=== PATIENT | female | born 1950 | race Caucasian/White ===

== ENCOUNTER 2017-03-19 17:50 | Observation (INO) | payer MEDICARE, MEDICAID ==
[~2017-03-19] VITALS: Ht 157.5 cm; Wt 70.0 kg
[2017-03-19] MEDS ORDERED: LOSA100T6 PO (18:45)
[2017-03-19] MEDS ORDERED: ASPI-496 PO (18:45)
[2017-03-19] MEDS ORDERED: METO25TA35 PO (18:45)
[2017-03-19 19:14] LABS: HEMATOCRIT 40.1 % (34.6-47.8); HEMOGLOBIN 13.4 g/dL (11.7-16.4); WHITE BLOOD COUNT 13.8 x10^3/uL (3.4-10)
[2017-03-19 19:30] LABS: BLOOD UREA NITROGEN 15 mg/dL (7-18)
[2017-03-19 19:34] LABS: ASPARTATE AMINO TRANSFERASE 44 U/L (15-37)
[2017-03-19 19:36] LABS: ACETAMINOPHEN < 2 mcg/mL (10-30)
[2017-03-19 20:20] LABS: DAU SCREEN DISCLAIMER
[2017-03-20] MEDS ORDERED: HALOPERIDOL 5 MG TABLET PO PRN (05:30)
[2017-03-20] MEDS ORDERED: BENZTROPINE 1 MG TABLET PO PRN (05:30)
[2017-03-20] MEDS ORDERED: HALOPERIDOL 5 MG/ML IM PRN (05:30)
[2017-03-20] MEDS ORDERED: LORazepam 2 MG/ML, 1ML IM PRN (05:30)
[2017-03-20] MEDS ORDERED: LORazepam 1MG TABLET ONE ×2 (09:09→19:35)
[2017-03-20] MEDS: LORazepam 1MG TABLET PO PRN ×2 (09:11→19:45)
[2017-03-21 05:53] VITALS: BP 145/80
[2017-03-21] MEDS ORDERED: HYDROcodone/APAP 5/325 TABLET ONE (06:43)
[2017-03-21] MEDS ORDERED: HYDROcodone/APAP 5/325 TABLET PO ONE (07:00)
== END 2017-03-21 08:08 ==
LOC: ED 19:52 → EDIP 03-20 04:50
PROVIDERS: ADMIT Hospitalist; ATTEND Hospitalist
DX: F22 Delusional disorders (principal); F23 Brief psychotic disorder; E03.9 Hypothyroidism, unspecified; F41.1 Generalized anxiety disorder; I10 Essential (primary) hypertension; J44.9 Chronic obstructive pulmonary disease, unspecified
CPT/HCPCS: 36415; 80053; 80307; 80329; 81001; 84443; 85025; 87086; 99285; G0378; G0479; G0480

== ENCOUNTER 2017-11-12 12:36 | Inpatient (IN) | payer MEDICARE, MEDICAID ==
[~2017-11-12] VITALS: Ht 157.5 cm; Wt 59.0 kg
[~2017-11-12 12:36] MED LIST: ASPI-496 PO; LOSA100T6 PO; METO25TA35 PO
[2017-11-12 13:31] LABS: BASOPHILS % (AUTO) 0 % (0-1); EOSINOPHILS # (AUTO) 0.08 x10^3/uL (0-0.4); EOSINOPHILS % (AUTO) 1 % (1-7); LYMPHOCYTES # (AUTO) 0.93 x10^3/uL (1-3.4); LYMPHOCYTES % (AUTO) 13 % (22-44); MD NO; MEAN CORPUSCULAR HEMOGLOBIN 24.6 pg (27.0-34.8); MEAN CORPUSCULAR VOLUME 81.9 fL (80-100); MEAN PLATELET VOLUME 5.4 fL (7.4-10.4); MONOCYTES % (AUTO) 11 % (2-9); NEUTROPHILS # (AUTO) 5.38 x10^3/uL (1.8-6.8); NEUTROPHILS % (AUTO) 75 % (42-75); PLATELET COUNT 721 x10^3/uL (130-400); RED BLOOD COUNT 3.63 x10^6/uL (3.82-5.3); RED CELL DISTRIBUTION WIDTH 17.9 % (9.6-15.2)
[2017-11-12 13:44] LABS: ALANINE AMINOTRANSFERASE 19 U/L (12-78); ALBUMIN 3.2 g/dL (3.4-5.0); ANION GAP 8 mmol/L (5-15); CALCIUM 8.4 mg/dL (8.5-10.1); CHLORIDE 98 mmol/L (98-107); CREATININE 0.51 mg/dL (0.55-1.02)
[2017-11-12 13:45] LABS: ACETAMINOPHEN < 2 mcg/mL (10-30); SALICYLATE LEVEL < 1.7 mg/dL (2.8-20.0)
[2017-11-12 13:46] LABS: ALKALINE PHOSPHATASE 99 U/L (45-117); BILIRUBIN,TOTAL 0.2 mg/dL (0.2-1.0); TOTAL PROTEIN 7.2 g/dL (6.4-8.2)
[2017-11-12] MEDS ORDERED: POTASSIUM CHLORIDE 20 MEQ, MAGNESIUM SULFATE 2 GM, THIAMINE 100 MG, MVI ADULT 10 ML, FO... IV SCH (17:02)
[2017-11-12] MEDS ORDERED: POLYETHYLENE GLYCOL 17 GM PACKET PO PRN (17:30)
[2017-11-12] MEDS ORDERED: GLUCAGON 1 MG IM PRN (17:30)
[2017-11-12] MEDS ORDERED: DEXTROSE 4 GM TAB.CHEW PO PRN (17:30)
[2017-11-12] MEDS ORDERED: DEXTROSE 50%, 50ML SYRINGE IVPush PRN (17:30)
[2017-11-12] MEDS ORDERED: LABETALOL 5MG/ML, 20ML IVPush PRN (17:30)
[2017-11-12] MEDS ORDERED: ONDANSETRON 2MG/ML, 2ML IVPush PRN (17:30)
[2017-11-12] MEDS ORDERED: LACTATED RINGERS 1,000 ML IV SCH (17:30)
[2017-11-12] MEDS ORDERED: ENOXAPARIN 40 MG/0.4 ML ONE (17:50)
[2017-11-12] MEDS: ENOXAPARIN 40 MG/0.4 ML SQ SCH (17:55)
[2017-11-12 18:33] LABS: FOLATE LEVEL 17.2 ng/mL (3.1-17.5); FREE T4 (FREE THYROXINE) 1.05 ng/dL (0.76-1.46); THYROID STIMULATING HORMONE 0.949 mIU/L (0.358-3.740)
[2017-11-12] MEDS ORDERED: ALBUTEROL SULFATE 2.5 MG/3 ML ONE (18:45)
[2017-11-12] MEDS: ALBUTEROL SULFATE 2.5 MG/3 ML NPPB PRN (18:49)
[2017-11-12] MEDS ORDERED: NICOTINE 14MG/24 HR PATCH.TD24 TD ONE (19:00)
[2017-11-12] MEDS ORDERED: LORazepam 1MG TABLET PO PRN ×4 (19:00)
[2017-11-12] MEDS ORDERED: LORazepam 2 MG/ML, 1ML IV PRN ×5 (19:00)
[2017-11-12] MEDS ORDERED: POTASSIUM CHLORIDE 20 MEQ TAB.ER.PRT PO ONE (19:00)
[2017-11-12] MEDS ORDERED: OMNIPAQUE 350 MG/ML, 100ML BOTTLE ONE (19:00)
[2017-11-12 19:31] VITALS: BP 138/69
[2017-11-12] MEDS: ALBUTEROL SULFATE 2.5 MG/3 ML NPPB SCH (21:00)
[2017-11-12] MEDS: THIAMINE 100MG TABLET PO SCH (21:17)
[2017-11-12] MEDS: SODIUM CHLORIDE FLUSH 10ML SYR IVF SCH (21:18)
[2017-11-12] MEDS: METOPROLOL TARTRATE 25 MG TABLET PO SCH (21:18)
[2017-11-12] MEDS: FOLIC ACID 1 MG TABLET PO SCH (21:18)
[2017-11-12 22:05] VITALS: BP 140/61
[2017-11-12 22:06] VITALS: BP 157/69
[2017-11-12 22:09] VITALS: BP 111/66
[2017-11-12 23:09] LABS: MICROSCOPIC NOT IND
[2017-11-12 23:12] LABS: CULTURE INDICATED? NO
[2017-11-12 23:29] LABS: AMPHETAMINE SCREEN, URINE Negative (Negative); BARBITURATE SCREEN, URINE Negative (Negative); BENZODIAZEPINE SCREEN, URINE Negative (Negative); CANNABINOID SCREEN, URINE Negative (Negative); COCAINE SCREEN, URINE Negative (Negative); METHADONE SCREEN, URINE Negative (Negative); OPIATE SCREEN, URINE Negative (Negative)
[2017-11-12 23:45] LABS: TROPONIN I < 0.015 ng/mL (0.000-0.045)
[2017-11-12 23:49] LABS: OCCULT BLOOD NEGATIVE (NEGATIVE)
[2017-11-13 03:59] VITALS: BP 148/73
[2017-11-13 05:25] LABS: BASOPHILS # (AUTO) 0.01 x10^3/uL (0-0.1); BASOPHILS % (AUTO) 0 % (0-1); EOSINOPHILS # (AUTO) 0.04 x10^3/uL (0-0.4); EOSINOPHILS % (AUTO) 1 % (1-7); LYMPHOCYTES # (AUTO) 0.74 x10^3/uL (1-3.4); LYMPHOCYTES % (AUTO) 11 % (22-44); MD NO; MEAN CORPUSCULAR HEMOGLOBIN 26.1 pg (27.0-34.8); MEAN CORPUSCULAR HGB CONC 31.5 g/dL (32.4-35.8); MEAN CORPUSCULAR VOLUME 82.7 fL (80-100); MEAN PLATELET VOLUME 5.5 fL (7.4-10.4); MONOCYTES # (AUTO) 1.27 x10^3/uL (0.2-0.8); MONOCYTES % (AUTO) 20 % (2-9); NEUTROPHILS # (AUTO) 4.45 x10^3/uL (1.8-6.8); NEUTROPHILS % (AUTO) 68 % (42-75); PLATELET COUNT 606 x10^3/uL (130-400); RED BLOOD COUNT 3.24 x10^6/uL (3.82-5.3); RED CELL DISTRIBUTION WIDTH 17.3 % (9.6-15.2)
[2017-11-13 05:32] LABS: CHLORIDE 100 mmol/L (98-107)
[2017-11-13 05:35] LABS: TROPONIN I < 0.015 ng/mL (0.000-0.045)
[2017-11-13 05:44] LABS: ALANINE AMINOTRANSFERASE 16 U/L (12-78); ALBUMIN 2.9 g/dL (3.4-5.0); ALKALINE PHOSPHATASE 96 U/L (45-117); ANION GAP 8 mmol/L (5-15); BILIRUBIN,TOTAL 0.3 mg/dL (0.2-1.0); CALCIUM 8.3 mg/dL (8.5-10.1); CREATININE 0.46 mg/dL (0.55-1.02); TOTAL PROTEIN 6.3 g/dL (6.4-8.2)
[2017-11-13 07:03] VITALS: BP 164/75
[2017-11-13] MEDS ORDERED: IRON SUCROSE COMPLEX 100MG/5ML IV SCH (09:00)
[2017-11-13] MEDS ORDERED: ASPIRIN 81 MG TABLET EC PO SCH (09:00)
[2017-11-13] MEDS: ALBUTEROL SULFATE 2.5 MG/3 ML NPPB SCH ×2 (09:00→20:25)
[2017-11-13] MEDS: FOLIC ACID 1 MG TABLET PO SCH (09:29)
[2017-11-13] MEDS: SENNA/DOCUSATE TABLET PO SCH ×2 (09:29→09:48)
[2017-11-13] MEDS: METOPROLOL TARTRATE 25 MG TABLET PO SCH (09:33)
[2017-11-13] MEDS: THIAMINE 100MG TABLET PO SCH (09:34)
[2017-11-13] MEDS: SODIUM CHLORIDE FLUSH 10ML SYR IVF SCH ×2 (09:41→21:34)
[2017-11-13 11:00] VITALS: BP_SYST 153; BP_SYST 162; BP_DIAS 81; BP_DIAS 83
[2017-11-13 11:59] LABS: TROPONIN I < 0.015 ng/mL (0.000-0.045)
[2017-11-13 15:08] VITALS: BP 161/86
[2017-11-13] MEDS ORDERED: SODI1TAB PO (16:07)
[2017-11-13] MEDS ORDERED: LORA1TAB PO (16:07)
[2017-11-13] MEDS ORDERED: GABA100C PO (16:07)
[2017-11-13] MEDS ORDERED: QUET25TA PO (16:07)
[2017-11-13] MEDS ORDERED: BUDE10.2 INH (16:07)
[2017-11-13] MEDS ORDERED: ASPI-496 PO (16:07)
[2017-11-13] MEDS ORDERED: LOSA25TA5 PO (16:07)
[2017-11-13] MEDS ORDERED: LEVO50TA PO (16:07)
[2017-11-13] MEDS ORDERED: BUSP5TAB2 PO (16:07)
[2017-11-13] MEDS ORDERED: TRAZ50TA18 PO (16:07)
[2017-11-13] MEDS ORDERED: LORA0.5T PO (16:07)
[2017-11-13] MEDS ORDERED: METO-93 PO (16:07)
[2017-11-13] MEDS ORDERED: SERT50TA5 PO (16:07)
[2017-11-13] MEDS ORDERED: ALBU18HF INH (16:07)
[2017-11-13] MEDS: ENOXAPARIN 40 MG/0.4 ML SQ SCH (17:59)
[2017-11-13] MEDS: GUAIFENESIN 200 MG TABLET PO SCH ×2 (17:59→21:33)
[2017-11-13] MEDS: ACETAMINOPHEN 325 MG TABLET PO PRN (18:07)
[2017-11-13 18:38] VITALS: BP 144/72
[2017-11-13] MEDS: QUETIAPINE 25MG TABLET PO SCH (21:00)
[2017-11-13] MEDS: TRAZODONE 50MG TABLET PO SCH (21:00)
[2017-11-13] MEDS: GABAPENTIN 100 MG CAPSULE PO SCH (21:00)
[2017-11-13] MEDS: NICOTINE 14MG/24 HR PATCH.TD24 TD SCH (21:33)
[2017-11-13] MEDS: BUSPIRONE 5 MG TABLET PO SCH (21:33)
[2017-11-13] MEDS ORDERED: POTASSIUM CHLORIDE 20 MEQ, MAGNESIUM SULFATE 2 GM, THIAMINE 100 MG, MVI ADULT 10 ML, FO... IV SCH (22:00)
[2017-11-14 00:39] VITALS: BP 161/96
[2017-11-14] MEDS: ACETAMINOPHEN 325 MG TABLET PO PRN ×3 (00:53→18:33)
[2017-11-14 05:15] LABS: ALBUMIN 2.8 g/dL (3.4-5.0); ANION GAP 8 mmol/L (5-15); CALCIUM 8.6 mg/dL (8.5-10.1); CHLORIDE 96 mmol/L (98-107); CREATININE 0.48 mg/dL (0.55-1.02)
[2017-11-14 05:26] LABS: BASOPHILS # (AUTO) 0.04 x10^3/uL (0-0.1); BASOPHILS % (AUTO) 1 % (0-1); EOSINOPHILS # (AUTO) 0.06 x10^3/uL (0-0.4); EOSINOPHILS % (AUTO) 1 % (1-7); LYMPHOCYTES # (AUTO) 0.89 x10^3/uL (1-3.4); LYMPHOCYTES % (AUTO) 12 % (22-44); MEAN CORPUSCULAR HEMOGLOBIN 26.8 pg (27.0-34.8); MEAN CORPUSCULAR HGB CONC 32.3 g/dL (32.4-35.8); MEAN CORPUSCULAR VOLUME 82.9 fL (80-100); MONOCYTES # (AUTO) 1.04 x10^3/uL (0.2-0.8); MONOCYTES % (AUTO) 14 % (2-9); NEUTROPHILS # (AUTO) 5.26 x10^3/uL (1.8-6.8); NEUTROPHILS % (AUTO) 72 % (42-75); PLATELET COUNT 487 x10^3/uL (130-400); RED CELL DISTRIBUTION WIDTH 18.3 % (9.6-15.2)
[2017-11-14] MEDS: GUAIFENESIN 200 MG TABLET PO SCH ×4 (05:28→20:52)
[2017-11-14] MEDS: LEVOTHYROXINE 50 MCG TABLET PO SCH (05:28)
[2017-11-14 05:36] LABS: MD NO
[2017-11-14] MEDS: ALBUTEROL SULFATE 2.5 MG/3 ML NPPB SCH ×2 (07:31→19:40)
[2017-11-14 08:09] VITALS: BP 153/74
[2017-11-14] MEDS: GABAPENTIN 100 MG CAPSULE PO SCH ×3 (09:00→20:52)
[2017-11-14] MEDS ORDERED: ASPIRIN 81 MG TABLET EC PO SCH (09:00)
[2017-11-14] MEDS: IRON SUCROSE COMPLEX 100MG/5ML IV SCH (09:22)
[2017-11-14] MEDS: SENNA/DOCUSATE TABLET PO SCH (09:23)
[2017-11-14] MEDS: SODIUM CHLORIDE FLUSH 10ML SYR IVF SCH ×2 (09:23→20:51)
[2017-11-14] MEDS: SERTRALINE 50MG TABLET PO SCH (09:24)
[2017-11-14] MEDS: ASPIRIN 81 MG TABLET CHEW PO SCH (09:24)
[2017-11-14] MEDS: BUSPIRONE 5 MG TABLET PO SCH ×3 (09:24→20:52)
[2017-11-14] MEDS: LOSARTAN 25MG TABLET PO SCH (09:24)
[2017-11-14] MEDS: THIAMINE 100MG TABLET PO SCH (09:24)
[2017-11-14] MEDS: METOPROLOL SUCCINATE 50 MG TAB.ER.24H PO SCH (09:24)
[2017-11-14] MEDS: FOLIC ACID 1 MG TABLET PO SCH (09:24)
[2017-11-14] MEDS: LORazepam 0.5MG TABLET PO PRN ×2 (11:56→18:33)
[2017-11-14 12:42] VITALS: BP 146/65
[2017-11-14] MEDS: ENOXAPARIN 40 MG/0.4 ML SQ SCH (18:23)
[2017-11-14 20:00] VITALS: BP 162/83
[2017-11-14] MEDS: QUETIAPINE 25MG TABLET PO SCH (20:52)
[2017-11-14] MEDS: TRAZODONE 50MG TABLET PO SCH (20:52)
[2017-11-14] MEDS: NICOTINE 14MG/24 HR PATCH.TD24 TD SCH (20:57)
[2017-11-15 02:00] VITALS: BP 136/68
[2017-11-15] MEDS: ACETAMINOPHEN 325 MG TABLET PO PRN ×3 (02:59→20:32)
[2017-11-15] MEDS: ALBUTEROL SULFATE 2.5 MG/3 ML NPPB PRN (03:10)
[2017-11-15] MEDS: LEVOTHYROXINE 50 MCG TABLET PO SCH (05:18)
[2017-11-15] MEDS: GUAIFENESIN 200 MG TABLET PO SCH ×4 (05:18→20:31)
[2017-11-15 05:35] LABS: ALBUMIN 2.7 g/dL (3.4-5.0); ANION GAP 7 mmol/L (5-15); CALCIUM 8.8 mg/dL (8.5-10.1); CHLORIDE 96 mmol/L (98-107)
[2017-11-15 05:40] LABS: ALANINE AMINOTRANSFERASE 12 U/L (12-78); ALKALINE PHOSPHATASE 77 U/L (45-117); BILIRUBIN,TOTAL 0.2 mg/dL (0.2-1.0); CREATININE 0.43 mg/dL (0.55-1.02); TOTAL PROTEIN 6.2 g/dL (6.4-8.2)
[2017-11-15 05:48] LABS: BASOPHILS # (AUTO) 0.01 x10^3/uL (0-0.1); BASOPHILS % (AUTO) 0 % (0-1); EOSINOPHILS # (AUTO) 0.05 x10^3/uL (0-0.4); EOSINOPHILS % (AUTO) 1 % (1-7); LYMPHOCYTES # (AUTO) 0.82 x10^3/uL (1-3.4); LYMPHOCYTES % (AUTO) 14 % (22-44); MD NO; MEAN CORPUSCULAR HEMOGLOBIN 25.9 pg (27.0-34.8); MEAN CORPUSCULAR HGB CONC 31.6 g/dL (32.4-35.8); MEAN CORPUSCULAR VOLUME 81.7 fL (80-100); MONOCYTES # (AUTO) 0.89 x10^3/uL (0.2-0.8); MONOCYTES % (AUTO) 15 % (2-9); NEUTROPHILS # (AUTO) 4.18 x10^3/uL (1.8-6.8); NEUTROPHILS % (AUTO) 70 % (42-75); PLATELET COUNT 522 x10^3/uL (130-400); RED BLOOD COUNT 3.04 x10^6/uL (3.82-5.3); RED CELL DISTRIBUTION WIDTH 17.4 % (9.6-15.2)
[2017-11-15] MEDS: ALBUTEROL SULFATE 2.5 MG/3 ML NPPB SCH (07:20)
[2017-11-15 08:04] VITALS: BP 146/65
[2017-11-15] MEDS: GABAPENTIN 100 MG CAPSULE PO SCH ×4 (09:00→20:38)
[2017-11-15] MEDS: SENNA/DOCUSATE TABLET PO SCH (09:00)
[2017-11-15] MEDS: SODIUM CHLORIDE FLUSH 10ML SYR IVF SCH ×2 (09:00→20:31)
[2017-11-15] MEDS: LOSARTAN 25MG TABLET PO SCH (10:14)
[2017-11-15] MEDS: FOLIC ACID 1 MG TABLET PO SCH (10:14)
[2017-11-15] MEDS: THIAMINE 100MG TABLET PO SCH (10:14)
[2017-11-15] MEDS: IRON SUCROSE COMPLEX 100MG/5ML IV SCH (10:14)
[2017-11-15] MEDS: SERTRALINE 50MG TABLET PO SCH (10:14)
[2017-11-15] MEDS: BUSPIRONE 5 MG TABLET PO SCH ×3 (10:14→20:33)
[2017-11-15] MEDS: ASPIRIN 81 MG TABLET CHEW PO SCH (10:14)
[2017-11-15] MEDS: METOPROLOL SUCCINATE 50 MG TAB.ER.24H PO SCH (10:14)
[2017-11-15] MEDS: LORazepam 0.5MG TABLET PO PRN ×2 (10:32→20:31)
[2017-11-15] MEDS: NICOTINE 14MG/24 HR PATCH.TD24 TD SCH (12:47)
[2017-11-15 15:03] VITALS: BP 154/78
[2017-11-15] MEDS: ENOXAPARIN 40 MG/0.4 ML SQ SCH (17:50)
[2017-11-15 20:00] VITALS: BP 133/72
[2017-11-15] MEDS: TRAZODONE 50MG TABLET PO SCH (20:33)
[2017-11-15] MEDS: QUETIAPINE 25MG TABLET PO SCH (20:34)
[2017-11-16 02:00] VITALS: BP 149/74
[2017-11-16] MEDS: LORazepam 0.5MG TABLET PO PRN ×3 (02:33→16:30)
[2017-11-16] MEDS: ACETAMINOPHEN 325 MG TABLET PO PRN ×3 (02:53→20:37)
[2017-11-16] MEDS: GUAIFENESIN 200 MG TABLET PO SCH ×4 (05:22→20:37)
[2017-11-16] MEDS: LEVOTHYROXINE 50 MCG TABLET PO SCH (05:22)
[2017-11-16 05:37] LABS: MEAN CORPUSCULAR HEMOGLOBIN 26.3 pg (27.0-34.8); MEAN CORPUSCULAR HGB CONC 31.9 g/dL (32.4-35.8); MEAN CORPUSCULAR VOLUME 82.5 fL (80-100); MEAN PLATELET VOLUME 5.8 fL (7.4-10.4); PLATELET COUNT 613 x10^3/uL (130-400); RED BLOOD COUNT 3.16 x10^6/uL (3.82-5.3); RED CELL DISTRIBUTION WIDTH 18.1 % (9.6-15.2)
[2017-11-16 05:41] LABS: ALBUMIN 2.7 g/dL (3.4-5.0); ANION GAP 8 mmol/L (5-15); CALCIUM 8.7 mg/dL (8.5-10.1); CHLORIDE 97 mmol/L (98-107)
[2017-11-16 05:44] LABS: CREATININE 0.51 mg/dL (0.55-1.02)
[2017-11-16 06:11] LABS: MD YES
[2017-11-16 06:13] LABS: BASOS#(MANUAL) 0.07 x10^3/uL (0-0.1); BASOS% (MANUAL) 1 % (0-1); LYMPHS% (MANUAL) 13 % (22-44); MONOS#(MANUAL) 1.38 x10^3/uL (0.3-2.7); MONOS% (MANUAL) 20 % (2-9); SEG#(MANUAL) 4.55 x10^3/uL (1.8-6.8); SEGS% (MANUAL) 66 % (42-75)
[2017-11-16 06:14] LABS: <PLATELET ESTIMATE> INCREASED; <PLT MORPHOLOGY> NORMAL PLT MORPH; <RBC MORPHOLOGY> NORMAL
[2017-11-16 08:40] VITALS: BP 131/67
[2017-11-16] MEDS: IRON SUCROSE COMPLEX 100MG/5ML IV SCH (08:52)
[2017-11-16] MEDS: BUSPIRONE 5 MG TABLET PO SCH ×3 (08:53→20:36)
[2017-11-16] MEDS: METOPROLOL SUCCINATE 50 MG TAB.ER.24H PO SCH (08:53)
[2017-11-16] MEDS: ASPIRIN 81 MG TABLET CHEW PO SCH (08:53)
[2017-11-16] MEDS: SERTRALINE 50MG TABLET PO SCH (08:53)
[2017-11-16] MEDS: FOLIC ACID 1 MG TABLET PO SCH (08:53)
[2017-11-16] MEDS: SENNA/DOCUSATE TABLET PO SCH ×2 (08:53→09:00)
[2017-11-16] MEDS: THIAMINE 100MG TABLET PO SCH (08:53)
[2017-11-16] MEDS: GABAPENTIN 100 MG CAPSULE PO SCH ×4 (08:54→20:38)
[2017-11-16] MEDS: SODIUM CHLORIDE FLUSH 10ML SYR IVF SCH ×2 (08:54→20:36)
[2017-11-16] MEDS: LOSARTAN 25MG TABLET PO SCH (08:54)
[2017-11-16] MEDS: NICOTINE 14MG/24 HR PATCH.TD24 TD SCH (10:48)
[2017-11-16 12:33] VITALS: BP 155/77
[2017-11-16] MEDS: ENOXAPARIN 40 MG/0.4 ML SQ SCH (16:19)
[2017-11-16 18:33] VITALS: BP 129/77
[2017-11-16] MEDS: TRAZODONE 50MG TABLET PO SCH (20:36)
[2017-11-16] MEDS: QUETIAPINE 25MG TABLET PO SCH (20:40)
[2017-11-17 01:24] VITALS: BP 98/60
[2017-11-17] MEDS: LORazepam 0.5MG TABLET PO PRN ×4 (05:09→22:14)
[2017-11-17] MEDS: LEVOTHYROXINE 50 MCG TABLET PO SCH (05:10)
[2017-11-17] MEDS: GUAIFENESIN 200 MG TABLET PO SCH ×4 (05:10→19:55)
[2017-11-17] MEDS: ACETAMINOPHEN 325 MG TABLET PO PRN ×3 (05:10→16:59)
[2017-11-17 05:46] LABS: MEAN CORPUSCULAR HEMOGLOBIN 26.4 pg (27.0-34.8); MEAN CORPUSCULAR HGB CONC 31.9 g/dL (32.4-35.8); MEAN CORPUSCULAR VOLUME 82.8 fL (80-100); MEAN PLATELET VOLUME 5.8 fL (7.4-10.4); PLATELET COUNT 664 x10^3/uL (130-400); RED CELL DISTRIBUTION WIDTH 17.7 % (9.6-15.2)
[2017-11-17 05:55] LABS: ALBUMIN 2.8 g/dL (3.4-5.0); ANION GAP 7 mmol/L (5-15); CALCIUM 8.9 mg/dL (8.5-10.1); CHLORIDE 95 mmol/L (98-107)
[2017-11-17 06:00] LABS: ALANINE AMINOTRANSFERASE 13 U/L (12-78); ALKALINE PHOSPHATASE 93 U/L (45-117); BILIRUBIN,TOTAL 0.6 mg/dL (0.2-1.0); CREATININE 0.53 mg/dL (0.55-1.02); TOTAL PROTEIN 6.5 g/dL (6.4-8.2)
[2017-11-17 06:04] LABS: BASOPHILS % (AUTO) 0 % (0-1); EOSINOPHILS # (AUTO) 0.09 x10^3/uL (0-0.4); EOSINOPHILS % (AUTO) 1 % (1-7); LYMPHOCYTES # (AUTO) 0.82 x10^3/uL (1-3.4); LYMPHOCYTES % (AUTO) 10 % (22-44); MD SCAN; MONOCYTES # (AUTO) 1.54 x10^3/uL (0.2-0.8); MONOCYTES % (AUTO) 18 % (2-9); NEUTROPHILS # (AUTO) 5.94 x10^3/uL (1.8-6.8); NEUTROPHILS % (AUTO) 71 % (42-75)
[2017-11-17 07:05] VITALS: BP 146/73
[2017-11-17] MEDS: GABAPENTIN 100 MG CAPSULE PO SCH ×4 (09:00→19:58)
[2017-11-17] MEDS: SENNA/DOCUSATE TABLET PO SCH (09:00)
[2017-11-17] MEDS: LOSARTAN 25MG TABLET PO SCH (09:25)
[2017-11-17] MEDS: IRON SUCROSE COMPLEX 100MG/5ML IV SCH (09:25)
[2017-11-17] MEDS: METOPROLOL SUCCINATE 50 MG TAB.ER.24H PO SCH (09:25)
[2017-11-17] MEDS: FOLIC ACID 1 MG TABLET PO SCH (09:25)
[2017-11-17] MEDS: THIAMINE 100MG TABLET PO SCH (09:25)
[2017-11-17] MEDS: ASPIRIN 81 MG TABLET CHEW PO SCH (09:26)
[2017-11-17] MEDS: SODIUM CHLORIDE FLUSH 10ML SYR IVF SCH ×2 (09:26→19:59)
[2017-11-17] MEDS: NICOTINE 14MG/24 HR PATCH.TD24 TD SCH (12:49)
[2017-11-17 13:10] VITALS: BP 155/77
[2017-11-17] MEDS: ARIPIPRAZOLE 10 MG TABLET PO SCH (14:18)
[2017-11-17] MEDS: ENOXAPARIN 40 MG/0.4 ML SQ SCH (17:00)
[2017-11-17 18:57] VITALS: BP 133/78
[2017-11-18 01:23] VITALS: BP 158/80
[2017-11-18] MEDS: ACETAMINOPHEN 325 MG TABLET PO PRN ×3 (02:27→18:59)
[2017-11-18] MEDS: GUAIFENESIN 200 MG TABLET PO SCH ×4 (06:14→21:03)
[2017-11-18] MEDS: LEVOTHYROXINE 50 MCG TABLET PO SCH (06:14)
[2017-11-18 06:28] LABS: BASOPHILS # (AUTO) 0.04 x10^3/uL (0-0.1); BASOPHILS % (AUTO) 1 % (0-1); EOSINOPHILS # (AUTO) 0.17 x10^3/uL (0-0.4); EOSINOPHILS % (AUTO) 2 % (1-7); LYMPHOCYTES # (AUTO) 0.93 x10^3/uL (1-3.4); LYMPHOCYTES % (AUTO) 12 % (22-44); MD NO; MEAN CORPUSCULAR HEMOGLOBIN 26.3 pg (27.0-34.8); MEAN CORPUSCULAR VOLUME 82.2 fL (80-100); MEAN PLATELET VOLUME 5.5 fL (7.4-10.4); MONOCYTES # (AUTO) 1.39 x10^3/uL (0.2-0.8); MONOCYTES % (AUTO) 18 % (2-9); NEUTROPHILS # (AUTO) 5.36 x10^3/uL (1.8-6.8); NEUTROPHILS % (AUTO) 68 % (42-75); PLATELET COUNT 604 x10^3/uL (130-400); RED BLOOD COUNT 3.45 x10^6/uL (3.82-5.3); RED CELL DISTRIBUTION WIDTH 18.2 % (9.6-15.2)
[2017-11-18 06:39] LABS: ALBUMIN 2.9 g/dL (3.4-5.0); ANION GAP 8 mmol/L (5-15); CALCIUM 8.7 mg/dL (8.5-10.1); CHLORIDE 90 mmol/L (98-107); CREATININE 0.44 mg/dL (0.55-1.02)
[2017-11-18 07:49] VITALS: BP 139/76
[2017-11-18] MEDS: SENNA/DOCUSATE TABLET PO SCH ×2 (08:23→08:36)
[2017-11-18] MEDS: SODIUM CHLORIDE FLUSH 10ML SYR IVF SCH ×2 (08:23→21:04)
[2017-11-18] MEDS: METOPROLOL SUCCINATE 50 MG TAB.ER.24H PO SCH (08:24)
[2017-11-18] MEDS: LOSARTAN 25MG TABLET PO SCH (08:24)
[2017-11-18] MEDS: FOLIC ACID 1 MG TABLET PO SCH (08:24)
[2017-11-18] MEDS: ASPIRIN 81 MG TABLET CHEW PO SCH (08:24)
[2017-11-18] MEDS: THIAMINE 100MG TABLET PO SCH (08:24)
[2017-11-18] MEDS: GABAPENTIN 100 MG CAPSULE PO SCH ×2 (08:24→08:36)
[2017-11-18] MEDS: ARIPIPRAZOLE 10 MG TABLET PO SCH (08:28)
[2017-11-18] MEDS: LORazepam 0.5MG TABLET PO PRN (09:32)
[2017-11-18] MEDS: NICOTINE 14MG/24 HR PATCH.TD24 TD SCH (11:04)
[2017-11-18 13:56] VITALS: BP 132/73
[2017-11-18] MEDS: ENOXAPARIN 40 MG/0.4 ML SQ SCH (16:45)
[2017-11-18] MEDS ORDERED: SODIUM CHLORIDE 0.9%, 500ML IVBOLUS ONE (18:30)
[2017-11-18] MEDS: OLANZAPINE 10 MG TABLET PO SCH (21:04)
[2017-11-18 21:11] VITALS: BP 143/83
[2017-11-19 01:00] VITALS: BP 125/72
[2017-11-19] MEDS: ACETAMINOPHEN 325 MG TABLET PO PRN ×3 (02:07→22:01)
[2017-11-19] MEDS: GUAIFENESIN 200 MG TABLET PO SCH ×4 (06:20→21:51)
[2017-11-19] MEDS: LEVOTHYROXINE 50 MCG TABLET PO SCH (06:20)
[2017-11-19 06:41] LABS: CHLORIDE 92 mmol/L (98-107)
[2017-11-19 07:29] LABS: ANION GAP 8 mmol/L (5-15); CALCIUM 8.7 mg/dL (8.5-10.1); CREATININE 0.45 mg/dL (0.55-1.02)
[2017-11-19 08:33] VITALS: BP 134/75
[2017-11-19] MEDS: SENNA/DOCUSATE TABLET PO SCH (09:00)
[2017-11-19] MEDS: SODIUM CHLORIDE FLUSH 10ML SYR IVF SCH ×2 (09:25→21:00)
[2017-11-19] MEDS: FOLIC ACID 1 MG TABLET PO SCH (09:25)
[2017-11-19] MEDS: ASPIRIN 81 MG TABLET CHEW PO SCH (09:25)
[2017-11-19] MEDS: THIAMINE 100MG TABLET PO SCH (09:25)
[2017-11-19] MEDS: METOPROLOL SUCCINATE 50 MG TAB.ER.24H PO SCH (09:26)
[2017-11-19] MEDS ORDERED: LORazepam 2 MG/ML, 1ML IVPush ONE (10:30)
[2017-11-19] MEDS: NICOTINE 14MG/24 HR PATCH.TD24 TD SCH (13:50)
[2017-11-19 13:59] VITALS: BP 137/78
[2017-11-19] MEDS: ENOXAPARIN 40 MG/0.4 ML SQ SCH (18:08)
[2017-11-19 20:21] VITALS: BP 169/76
[2017-11-19] MEDS: OLANZAPINE 10 MG TABLET PO SCH (21:51)
[2017-11-19] MEDS: LORazepam 0.5MG TABLET PO PRN (21:51)
[2017-11-19] MEDS: ONDANSETRON ODT 4 MG PO PRN (23:47)
[2017-11-20 02:00] VITALS: BP 116/73
[2017-11-20] MEDS: LORazepam 0.5MG TABLET PO PRN ×2 (04:10→10:12)
[2017-11-20] MEDS: ACETAMINOPHEN 325 MG TABLET PO PRN ×4 (04:10→22:53)
[2017-11-20] MEDS: LEVOTHYROXINE 50 MCG TABLET PO SCH (05:11)
[2017-11-20] MEDS: GUAIFENESIN 200 MG TABLET PO SCH ×4 (05:11→22:07)
[2017-11-20 05:24] LABS: MEAN CORPUSCULAR HEMOGLOBIN 27.4 pg (27.0-34.8); MEAN CORPUSCULAR HGB CONC 32.7 g/dL (32.4-35.8); MEAN CORPUSCULAR VOLUME 83.7 fL (80-100); MEAN PLATELET VOLUME 5.8 fL (7.4-10.4); PLATELET COUNT 668 x10^3/uL (130-400); RED BLOOD COUNT 3.41 x10^6/uL (3.82-5.3); RED CELL DISTRIBUTION WIDTH 19.6 % (9.6-15.2)
[2017-11-20 05:30] LABS: CHLORIDE 87 mmol/L (98-107)
[2017-11-20 05:44] LABS: ALANINE AMINOTRANSFERASE 14 U/L (12-78); ALKALINE PHOSPHATASE 95 U/L (45-117); ANION GAP 7 mmol/L (5-15); BILIRUBIN,TOTAL 0.5 mg/dL (0.2-1.0); CALCIUM 8.8 mg/dL (8.5-10.1); CREATININE 0.42 mg/dL (0.55-1.02); TOTAL PROTEIN 6.9 g/dL (6.4-8.2)
[2017-11-20 05:58] LABS: BASOPHILS # (AUTO) 0.05 x10^3/uL (0-0.1); BASOPHILS % (AUTO) 1 % (0-1); EOSINOPHILS # (AUTO) 0.12 x10^3/uL (0-0.4); EOSINOPHILS % (AUTO) 1 % (1-7); LYMPHOCYTES # (AUTO) 0.86 x10^3/uL (1-3.4); LYMPHOCYTES % (AUTO) 9 % (22-44); MD SCAN; MONOCYTES # (AUTO) 1.66 x10^3/uL (0.2-0.8); MONOCYTES % (AUTO) 18 % (2-9); NEUTROPHILS # (AUTO) 6.47 x10^3/uL (1.8-6.8); NEUTROPHILS % (AUTO) 71 % (42-75)
[2017-11-20] MEDS ORDERED: SODIUM CHLORIDE 0.9%, 500ML IVBOLUS ONE (08:00)
[2017-11-20 08:17] VITALS: BP 142/87
[2017-11-20] MEDS: SODIUM CHLORIDE FLUSH 10ML SYR IVF SCH ×2 (08:45→21:00)
[2017-11-20] MEDS: THIAMINE 100MG TABLET PO SCH (08:45)
[2017-11-20] MEDS: FOLIC ACID 1 MG TABLET PO SCH (08:45)
[2017-11-20] MEDS: SENNA/DOCUSATE TABLET PO SCH (08:45)
[2017-11-20] MEDS: ASPIRIN 81 MG TABLET CHEW PO SCH (08:45)
[2017-11-20] MEDS: METOPROLOL SUCCINATE 50 MG TAB.ER.24H PO SCH (08:45)
[2017-11-20 13:21] LABS: ANION GAP 6 mmol/L (5-15); CALCIUM 8.6 mg/dL (8.5-10.1); CHLORIDE 88 mmol/L (98-107)
[2017-11-20 13:22] LABS: CREATININE 0.49 mg/dL (0.55-1.02)
[2017-11-20 14:09] VITALS: BP 139/83
[2017-11-20] MEDS: NICOTINE 14MG/24 HR PATCH.TD24 TD SCH (14:10)
[2017-11-20] MEDS: ENOXAPARIN 40 MG/0.4 ML SQ SCH (18:08)
[2017-11-20 21:03] VITALS: BP 136/70
[2017-11-20] MEDS: OLANZAPINE 10 MG TABLET PO SCH (22:07)
[2017-11-21 01:58] VITALS: BP 110/66
[2017-11-21] MEDS: LORazepam 0.5MG TABLET PO PRN ×2 (03:22→12:10)
[2017-11-21] MEDS: LEVOTHYROXINE 50 MCG TABLET PO SCH (04:57)
[2017-11-21] MEDS: ACETAMINOPHEN 325 MG TABLET PO PRN ×3 (04:58→23:14)
[2017-11-21] MEDS: GUAIFENESIN 200 MG TABLET PO SCH ×4 (04:58→22:06)
[2017-11-21 05:51] LABS: ALBUMIN 3.1 g/dL (3.4-5.0); CALCIUM 8.7 mg/dL (8.5-10.1); CHLORIDE 94 mmol/L (98-107)
[2017-11-21 05:54] LABS: ANION GAP 7 mmol/L (5-15); CREATININE 0.65 mg/dL (0.55-1.02)
[2017-11-21 05:57] LABS: MEAN CORPUSCULAR HEMOGLOBIN 26.5 pg (27.0-34.8); MEAN CORPUSCULAR HGB CONC 31.7 g/dL (32.4-35.8); MEAN CORPUSCULAR VOLUME 83.4 fL (80-100); PLATELET COUNT 683 x10^3/uL (130-400); RED BLOOD COUNT 3.41 x10^6/uL (3.82-5.3); RED CELL DISTRIBUTION WIDTH 20.6 % (9.6-15.2)
[2017-11-21 06:47] LABS: MD YES
[2017-11-21 06:49] LABS: BAND#(MANUAL) 0.39 x10^3/uL; BANDS%(MANUAL) 5 % (0-7); LYMPH#(MANUAL) 0.92 x10^3/uL (1-3.4); LYMPHS% (MANUAL) 12 % (22-44); MONOS#(MANUAL) 1.46 x10^3/uL (0.3-2.7); MONOS% (MANUAL) 19 % (2-9); SEG#(MANUAL) 4.93 x10^3/uL (1.8-6.8); SEGS% (MANUAL) 64 % (42-75)
[2017-11-21 06:50] LABS: ANISOCYTOSIS 1+
[2017-11-21 06:51] LABS: <PLATELET ESTIMATE> INCREASED; <PLT MORPHOLOGY> NORMAL PLT MORPH; HYPOCHROMIA 1+
[2017-11-21 07:15] VITALS: BP 138/73
[2017-11-21] MEDS: SENNA/DOCUSATE TABLET PO SCH (09:00)
[2017-11-21] MEDS: FOLIC ACID 1 MG TABLET PO SCH (09:15)
[2017-11-21] MEDS: ASPIRIN 81 MG TABLET CHEW PO SCH (09:15)
[2017-11-21] MEDS: THIAMINE 100MG TABLET PO SCH (09:15)
[2017-11-21] MEDS: METOPROLOL SUCCINATE 50 MG TAB.ER.24H PO SCH (09:15)
[2017-11-21] MEDS: SODIUM CHLORIDE FLUSH 10ML SYR IVF SCH ×2 (09:16→22:06)
[2017-11-21] MEDS: SODIUM CHLORIDE 1 GM TABLET PO SCH ×2 (12:10→17:01)
[2017-11-21] MEDS: NICOTINE 14MG/24 HR PATCH.TD24 TD SCH (12:10)
[2017-11-21 12:32] VITALS: BP 153/78
[2017-11-21] MEDS: ENOXAPARIN 40 MG/0.4 ML SQ SCH (17:01)
[2017-11-21 19:06] VITALS: BP 137/89
[2017-11-21] MEDS: OLANZAPINE 10 MG TABLET PO SCH (22:06)
[2017-11-22] MEDS: LORazepam 0.5MG TABLET PO PRN ×3 (00:42→18:19)
[2017-11-22 00:54] VITALS: BP 120/79
[2017-11-22] MEDS: ONDANSETRON ODT 4 MG PO PRN (02:46)
[2017-11-22] MEDS: GUAIFENESIN 200 MG TABLET PO SCH ×4 (05:05→20:05)
[2017-11-22] MEDS: LEVOTHYROXINE 50 MCG TABLET PO SCH (05:06)
[2017-11-22 05:16] LABS: MEAN CORPUSCULAR HEMOGLOBIN 27.2 pg (27.0-34.8); MEAN CORPUSCULAR HGB CONC 32.1 g/dL (32.4-35.8); MEAN CORPUSCULAR VOLUME 84.7 fL (80-100); MEAN PLATELET VOLUME 5.9 fL (7.4-10.4); PLATELET COUNT 652 x10^3/uL (130-400); RED BLOOD COUNT 3.46 x10^6/uL (3.82-5.3); RED CELL DISTRIBUTION WIDTH 21.8 % (9.6-15.2)
[2017-11-22] MEDS: ACETAMINOPHEN 325 MG TABLET PO PRN ×3 (05:21→17:55)
[2017-11-22 05:27] LABS: CHLORIDE 94 mmol/L (98-107)
[2017-11-22 05:35] LABS: ALBUMIN 3.2 g/dL (3.4-5.0); ANION GAP 9 mmol/L (5-15); CALCIUM 8.7 mg/dL (8.5-10.1); CREATININE 0.55 mg/dL (0.55-1.02)
[2017-11-22 06:14] LABS: BASOPHILS # (AUTO) 0.06 x10^3/uL (0-0.1); BASOPHILS % (AUTO) 1 % (0-1); EOSINOPHILS # (AUTO) 0.17 x10^3/uL (0-0.4); EOSINOPHILS % (AUTO) 2 % (1-7); LYMPHOCYTES # (AUTO) 0.97 x10^3/uL (1-3.4); LYMPHOCYTES % (AUTO) 11 % (22-44); MD SCAN; MONOCYTES # (AUTO) 1.56 x10^3/uL (0.2-0.8); MONOCYTES % (AUTO) 18 % (2-9); NEUTROPHILS # (AUTO) 5.73 x10^3/uL (1.8-6.8); NEUTROPHILS % (AUTO) 67 % (42-75)
[2017-11-22 07:30] VITALS: BP 143/73
[2017-11-22] MEDS: CEFTRIAXONE PMX 1GM/50ML 50 ML IV SCH ×2 (07:30→08:16)
[2017-11-22] MEDS: FOLIC ACID 1 MG TABLET PO SCH (08:16)
[2017-11-22] MEDS: METOPROLOL SUCCINATE 50 MG TAB.ER.24H PO SCH (08:16)
[2017-11-22] MEDS: SODIUM CHLORIDE FLUSH 10ML SYR IVF SCH ×2 (08:16→20:05)
[2017-11-22] MEDS: SODIUM CHLORIDE 1 GM TABLET PO SCH ×3 (08:16→17:55)
[2017-11-22] MEDS: THIAMINE 100MG TABLET PO SCH (08:16)
[2017-11-22] MEDS: ASPIRIN 81 MG TABLET CHEW PO SCH (08:16)
[2017-11-22] MEDS: SENNA/DOCUSATE TABLET PO SCH (08:51)
[2017-11-22] MEDS ORDERED: SODIUM CHLORIDE 0.9%, 500ML IVBOLUS ONE (09:30)
[2017-11-22] MEDS: NICOTINE 14MG/24 HR PATCH.TD24 TD SCH (11:32)
[2017-11-22] MEDS: BENZTROPINE 1 MG TABLET PO SCH ×2 (13:23→20:04)
[2017-11-22 14:13] VITALS: BP 145/54
[2017-11-22] MEDS: ENOXAPARIN 40 MG/0.4 ML SQ SCH (17:55)
[2017-11-22 20:02] VITALS: BP 137/82
[2017-11-22] MEDS: OLANZAPINE 10 MG TABLET PO SCH (20:05)
[2017-11-23] MEDS ORDERED: LIDOCAINE 4% TD PRN (01:00)
[2017-11-23] MEDS: ACETAMINOPHEN 325 MG TABLET PO PRN ×2 (01:09→08:19)
[2017-11-23] MEDS: LORazepam 0.5MG TABLET PO PRN ×3 (01:10→14:07)
[2017-11-23 05:46] VITALS: BP 117/67
[2017-11-23] MEDS: GUAIFENESIN 200 MG TABLET PO SCH ×2 (06:01→11:45)
[2017-11-23] MEDS: LEVOTHYROXINE 50 MCG TABLET PO SCH (06:01)
[2017-11-23 07:33] VITALS: BP 135/73
[2017-11-23] MEDS: BENZTROPINE 1 MG TABLET PO SCH (08:09)
[2017-11-23] MEDS: SODIUM CHLORIDE 1 GM TABLET PO SCH ×2 (08:09→11:45)
[2017-11-23] MEDS: SENNA/DOCUSATE TABLET PO SCH (08:09)
[2017-11-23] MEDS: THIAMINE 100MG TABLET PO SCH (08:10)
[2017-11-23] MEDS: SODIUM CHLORIDE FLUSH 10ML SYR IVF SCH (08:10)
[2017-11-23] MEDS: METOPROLOL SUCCINATE 50 MG TAB.ER.24H PO SCH (08:10)
[2017-11-23] MEDS: ASPIRIN 81 MG TABLET CHEW PO SCH (08:10)
[2017-11-23] MEDS: FOLIC ACID 1 MG TABLET PO SCH (08:10)
[2017-11-23] MEDS: CEFTRIAXONE PMX 1GM/50ML 50 ML IV SCH (08:10)
[2017-11-23 08:29] LABS: MEAN CORPUSCULAR HEMOGLOBIN 27.6 pg (27.0-34.8); MEAN CORPUSCULAR VOLUME 83.5 fL (80-100); MEAN PLATELET VOLUME 5.8 fL (7.4-10.4); PLATELET COUNT 650 x10^3/uL (130-400); RED BLOOD COUNT 3.28 x10^6/uL (3.82-5.3); RED CELL DISTRIBUTION WIDTH 21.3 % (9.6-15.2)
[2017-11-23 09:29] LABS: ALBUMIN 3.1 g/dL (3.4-5.0); ANION GAP 9 mmol/L (5-15); CALCIUM 9.1 mg/dL (8.5-10.1); CHLORIDE 99 mmol/L (98-107); CREATININE 0.63 mg/dL (0.55-1.02)
[2017-11-23 09:50] LABS: BASOPHILS # (AUTO) 0.04 x10^3/uL (0-0.1); BASOPHILS % (AUTO) 0 % (0-1); EOSINOPHILS # (AUTO) 0.14 x10^3/uL (0-0.4); EOSINOPHILS % (AUTO) 2 % (1-7); LYMPHOCYTES # (AUTO) 0.67 x10^3/uL (1-3.4); LYMPHOCYTES % (AUTO) 7 % (22-44); MD SCAN; MONOCYTES # (AUTO) 1.57 x10^3/uL (0.2-0.8); MONOCYTES % (AUTO) 17 % (2-9); NEUTROPHILS # (AUTO) 7.12 x10^3/uL (1.8-6.8); NEUTROPHILS % (AUTO) 75 % (42-75)
[2017-11-23] MEDS: NICOTINE 14MG/24 HR PATCH.TD24 TD SCH (11:45)
[2017-11-23] MEDS ORDERED: FOLI-17 PO (13:48)
[2017-11-23] MEDS ORDERED: CEFD300C37 PO (13:48)
[2017-11-23] MEDS ORDERED: BENZ1TAB61 PO (13:48)
[2017-11-23] MEDS ORDERED: THIA100T6 PO (13:48)
[2017-11-23] MEDS ORDERED: OLAN10TA9 PO (13:48)
== END 2017-11-23 14:57 | disposition home or self-care (01) | DRG 896 ==
LOC: ED 16:37 → EDIP 16:38 → ED 17:28 → 4WST 18:39 → 4EST 11-16 11:17
PROVIDERS: ADMIT Hospitalist; ATTEND Hospitalist
DX: F10.129 Alcohol abuse with intoxication, unspecified (principal); G92 Toxic encephalopathy; D68.69 Other thrombophilia; E87.1 Hypo-osmolality and hyponatremia; E44.0 Moderate protein-calorie malnutrition; I42.9 Cardiomyopathy, unspecified; R62.7 Adult failure to thrive; E87.6 Hypokalemia; I48.91 Unspecified atrial fibrillation; I50.9 Heart failure, unspecified; F17.200 Nicotine dependence, unspecified, uncomplicated; E03.9 Hypothyroidism, unspecified; R73.9 Hyperglycemia, unspecified; F41.9 Anxiety disorder, unspecified; K86.9 Disease of pancreas, unspecified; F31.9 Bipolar disorder, unspecified; Y90.0 Blood alcohol level of less than 20 mg/100 ml; W18.30XA Fall on same level, unspecified, initial encounter; D50.9 Iron deficiency anemia, unspecified; Z80.1 Family history of malignant neoplasm of trachea, bronchus and lung; Z82.0 Family history of epilepsy and other diseases of the nervous system; Z86.79 Personal history of other diseases of the circulatory system; Z91.5 Personal history of self-harm; Z95.810 Presence of automatic (implantable) cardiac defibrillator; Y93.89 Activity, other specified; Y92.89 Other specified places as the place of occurrence of the external cause; Y99.8 Other external cause status
CPT/HCPCS: 36415; 36600; 70450; 72190; 74178; 76700; 80048; 80053; 80307; 80329; 81003; 82040; 82150; 82272; 82607; 82728; 82746; 82803; 82962; 83540; 83550; 83690; 83735; 84100; 84439; 84443; 84484; 85025; 86301; 87040; 87070; 87205; 93005; 93306; 93970; 94640; 99285; J0696; J1650; J1756; J3411; J3475; J3480; J7042; J7613; Q0162; Q9967; 92523-GN; G0480; J2060; J7040; J7120

== ENCOUNTER 2018-03-29 09:54 | Emergency (ER) | payer MEDICARE, MEDICAID ==
[~2018-03-29] VITALS: Ht 154.9 cm; Wt 50.0 kg
[~2018-03-29 09:54] MED LIST changes: +ALBU18HF INH; +BENZ1TAB61 PO; +BUDE10.2 INH; +BUSP5TAB2 PO; +CEFD300C37 PO; +FOLI-17 PO; +GABA100C PO; +LEVO50TA PO; +LORA0.5T PO; +LORA1TAB PO; -LOSA100T6 PO; +LOSA100T7 PO; +LOSA25TA6 PO; +METO-93 PO; +OLAN10TA9 PO; +QUET25TA PO; +SERT50TA5 PO; +SODI1TAB PO; +THIA100T67 PO; +TRAZ-136 PO
[2018-03-29 10:08] VITALS: BP 115/65
[2018-03-29] MEDS ORDERED: LORazepam 0.5MG TABLET PO ONE (10:30)
[2018-03-29 10:51] LABS: MEAN CORPUSCULAR HEMOGLOBIN 33.1 pg (27.0-34.8); MEAN CORPUSCULAR HGB CONC 33.5 g/dL (32.4-35.8); MEAN CORPUSCULAR VOLUME 98.8 fL (80-100); MEAN PLATELET VOLUME 6.2 fL (7.4-10.4); PLATELET COUNT 337 x10^3/uL (130-400); RED BLOOD COUNT 3.51 x10^6/uL (3.82-5.3); RED CELL DISTRIBUTION WIDTH 19.3 % (9.6-15.2)
[2018-03-29 10:57] LABS: CALCIUM 8.8 mg/dL (8.5-10.1); CHLORIDE 98 mmol/L (98-107)
[2018-03-29 11:01] LABS: ALANINE AMINOTRANSFERASE 39 U/L (12-78); ALBUMIN 3.5 g/dL (3.4-5.0); ANION GAP 6 mmol/L (5-15); CREATININE 0.49 mg/dL (0.55-1.02)
[2018-03-29 11:02] LABS: SALICYLATE LEVEL < 1.7 mg/dL (2.8-20.0)
[2018-03-29 11:04] LABS: MD YES
[2018-03-29 11:05] LABS: ALKALINE PHOSPHATASE 132 U/L (45-117); BILIRUBIN,TOTAL 0.3 mg/dL (0.2-1.0); CREATINE KINASE, TOTAL 85 U/L (26-192); TOTAL PROTEIN 6.7 g/dL (6.4-8.2)
[2018-03-29 11:06] LABS: ACETAMINOPHEN < 2 mcg/mL (10-30)
[2018-03-29 11:08] LABS: <PLATELET ESTIMATE> ADEQUATE; <PLT MORPHOLOGY> NORMAL PLT MORPH; ANISOCYTOSIS 1+; BAND#(MANUAL) 0.15 x10^3/uL; BANDS%(MANUAL) 3 % (0-7); BASOS#(MANUAL) 0.05 x10^3/uL (0-0.1); BASOS% (MANUAL) 1 % (0-1); EOS#(MANUAL) 0.05 x10^3/uL (0.0-0.4); EOS% (MANUAL) 1 % (1-7); LYMPH#(MANUAL) 0.92 x10^3/uL (1-3.4); LYMPHS% (MANUAL) 18 % (22-44); MONOS#(MANUAL) 0.36 x10^3/uL (0.3-2.7); MONOS% (MANUAL) 7 % (2-9); SEG#(MANUAL) 3.57 x10^3/uL (1.8-6.8); SEGS% (MANUAL) 70 % (42-75)
[2018-03-29 12:35] LABS: MICROSCOPIC NOT IND
[2018-03-29 12:40] LABS: CULTURE INDICATED? NO
[2018-03-29 13:17] LABS: AMPHETAMINE SCREEN, URINE Negative (Negative); BARBITURATE SCREEN, URINE Negative (Negative); BENZODIAZEPINE SCREEN, URINE Negative (Negative); CANNABINOID SCREEN, URINE Negative (Negative); COCAINE SCREEN, URINE Negative (Negative); METHADONE SCREEN, URINE Negative (Negative); OPIATE SCREEN, URINE Negative (Negative)
[2018-03-29] MEDS ORDERED: LORazepam 0.5MG TABLET ONE (16:25)
== END 2018-03-29 18:32 | disposition home or self-care (01) ==
LOC: ED 10:00
DX: F10.220 Alcohol dependence with intoxication, uncomplicated (principal); R62.7 Adult failure to thrive; Z00.01 Encounter for general adult medical examination with abnormal findings; F31.9 Bipolar disorder, unspecified; I48.91 Unspecified atrial fibrillation; E03.9 Hypothyroidism, unspecified; F41.1 Generalized anxiety disorder; F17.200 Nicotine dependence, unspecified, uncomplicated; Z95.0 Presence of cardiac pacemaker
CPT/HCPCS: 36415; 80053; 80307; 80329; 81003; 82140; 82550; 85025; 99284; G0480

== ENCOUNTER 2018-05-23 15:50 | Inpatient (IN) | payer MEDICARE, MEDICAID ==
[~2018-05-23] VITALS: Ht 157.5 cm; Wt 46.6 kg
[~2018-05-23 15:50] MED LIST changes: -TRAZ-136 PO; +TRAZ50TA66 PO
[2018-05-23] MEDS ORDERED: ASPI81TA45 PO (16:24)
[2018-05-23] MEDS ORDERED: METO-93 PO (16:24)
[2018-05-23] MEDS ORDERED: ARIP5TAB13 PO (16:24)
[2018-05-23] MEDS ORDERED: NICO-487 TD (16:24)
[2018-05-23] MEDS ORDERED: CEFD300C37 PO (16:24)
[2018-05-23] MEDS ORDERED: DOCUSATE 100 MG CAPSULE PO PRN (18:00)
[2018-05-23] MEDS ORDERED: BISACODYL 10 MG SUPP PR PRN (18:00)
[2018-05-23] MEDS ORDERED: POLYETHYLENE GLYCOL 17 GM PACKET PO PRN (18:00)
[2018-05-23] MEDS ORDERED: PLEASE ENTER HEIGHT AND WEIGHT MC SCH (18:30)
[2018-05-23 19:31] VITALS: BP 147/79
[2018-05-23] MEDS: ACETAMINOPHEN 500 MG TABLET PO PRN (21:30)
[2018-05-23] MEDS: CEFDINIR 300 MG CAPSULE PO SCH (21:30)
[2018-05-23] MEDS: NICOTINE 21 MG/24 HR PATCH.TD24 TD SCH (21:30)
[2018-05-24] MEDS: ACETAMINOPHEN 500 MG TABLET PO PRN ×3 (03:48→21:15)
[2018-05-24 04:15] LABS: MICROSCOPIC AUTO
[2018-05-24 04:16] LABS: CULTURE INDICATED? NO
[2018-05-24 05:39] VITALS: BP 137/75
[2018-05-24] MEDS: METOPROLOL SUCCINATE 50 MG TAB.ER.24H PO SCH (05:41)
[2018-05-24 05:47] LABS: BASOPHILS # (AUTO) 0.02 x10^3/uL (0-0.1); BASOPHILS % (AUTO) 0 % (0-1); EOSINOPHILS # (AUTO) 0.23 x10^3/uL (0-0.4); EOSINOPHILS % (AUTO) 4 % (1-7); LYMPHOCYTES # (AUTO) 0.74 x10^3/uL (1-3.4); LYMPHOCYTES % (AUTO) 13 % (22-44); MD NO; MEAN CORPUSCULAR HEMOGLOBIN 32.2 pg (27.0-34.8); MEAN CORPUSCULAR HGB CONC 33.6 g/dL (32.4-35.8); MEAN PLATELET VOLUME 5.8 fL (7.4-10.4); MONOCYTES % (AUTO) 16 % (2-9); NEUTROPHILS # (AUTO) 3.75 x10^3/uL (1.8-6.8); NEUTROPHILS % (AUTO) 66 % (42-75); PLATELET COUNT 330 x10^3/uL (130-400); RED BLOOD COUNT 2.97 x10^6/uL (3.82-5.3); RED CELL DISTRIBUTION WIDTH 14.3 % (9.6-15.2)
[2018-05-24 05:50] LABS: INTERNATIONAL NORMALIZED RATIO 1.08 (0.93-1.1); PROTHROMBIN TIME 11.4 Seconds (9.6-11.5)
[2018-05-24 05:59] LABS: ALANINE AMINOTRANSFERASE 15 U/L (12-78); ALBUMIN 2.7 g/dL (3.4-5.0); ANION GAP 7 mmol/L (5-15); CALCIUM 8.2 mg/dL (8.5-10.1); CHLORIDE 95 mmol/L (98-107)
[2018-05-24 06:23] LABS: ALKALINE PHOSPHATASE 105 U/L (45-117); BILIRUBIN,TOTAL 0.3 mg/dL (0.2-1.0); CHOLESTEROL, TOTAL 137 mg/dL (140-239); CREATININE 0.41 mg/dL (0.55-1.02); TOTAL PROTEIN 5.9 g/dL (6.4-8.2); TRIGLYCERIDES 79 mg/dL (50-200); VLDL CHOLESTEROL 16 mg/dL (0-25)
[2018-05-24 06:24] LABS: CHOL/HDL RATIO 2.4; FOLATE LEVEL 9.7 ng/mL (3.1-17.5); FREE T4 (FREE THYROXINE) 1.02 ng/dL (0.76-1.46); HDL CHOL % 42 % (28-40); HDL CHOLESTEROL (DIRECT) 58 mg/dL (40-60); LDL CHOLESTEROL,CALCULATED 63 mg/dL (54-169); LDL/HDL RATIO 1.1 (0.5-3.0)
[2018-05-24 07:29] VITALS: BP 157/76
[2018-05-24] MEDS ORDERED: ARIPIPRAZOLE 10 MG TABLET PO SCH (09:00)
[2018-05-24] MEDS: CEFDINIR 300 MG CAPSULE PO SCH ×2 (09:13→21:15)
[2018-05-24] MEDS: ASPIRIN 81 MG TABLET EC PO SCH (09:13)
[2018-05-24] MEDS: HYDROXYZINE PAMOATE 50MG CAP PO PRN ×2 (14:05→21:15)
[2018-05-24] MEDS: NICOTINE 21 MG/24 HR PATCH.TD24 TD SCH (17:55)
[2018-05-24 19:47] VITALS: BP 145/78
[2018-05-24] MEDS: OXCARBAZEPINE 150 MG TABLET PO SCH (21:15)
[2018-05-25 05:41] VITALS: BP 157/83
[2018-05-25] MEDS: METOPROLOL SUCCINATE 50 MG TAB.ER.24H PO SCH (05:48)
[2018-05-25 07:37] VITALS: BP 163/82
[2018-05-25] MEDS: ACETAMINOPHEN 500 MG TABLET PO PRN ×2 (07:38→14:15)
[2018-05-25] MEDS: ASPIRIN 81 MG TABLET EC PO SCH (07:38)
[2018-05-25] MEDS: HYDROXYZINE PAMOATE 50MG CAP PO PRN (07:38)
[2018-05-25] MEDS: OXCARBAZEPINE 150 MG TABLET PO SCH ×2 (08:12→20:47)
[2018-05-25] MEDS: CEFDINIR 300 MG CAPSULE PO SCH ×2 (08:12→20:46)
[2018-05-25] MEDS: NICOTINE 21 MG/24 HR PATCH.TD24 TD SCH (12:52)
[2018-05-25 19:32] VITALS: BP 165/90
[2018-05-26] MEDS: ACETAMINOPHEN 500 MG TABLET PO PRN (03:23)
[2018-05-26] MEDS: METOPROLOL SUCCINATE 50 MG TAB.ER.24H PO SCH (05:15)
[2018-05-26 07:36] VITALS: BP 173/81
[2018-05-26] MEDS: ASPIRIN 81 MG TABLET EC PO SCH (08:06)
[2018-05-26] MEDS: OXCARBAZEPINE 150 MG TABLET PO SCH ×2 (08:06→08:13)
[2018-05-26] MEDS: CEFDINIR 300 MG CAPSULE PO SCH (08:06)
== END 2018-05-26 13:18 | disposition home or self-care (01) | DRG 885 ==
LOC: 3E 18:07
PROVIDERS: ADMIT Counselor Mental Health; ATTEND Counselor Mental Health
DX: F31.9 Bipolar disorder, unspecified (principal); N39.0 Urinary tract infection, site not specified; R45.851 Suicidal ideations; I50.30 Unspecified diastolic (congestive) heart failure; R62.7 Adult failure to thrive; I10 Essential (primary) hypertension; B96.20 Unspecified Escherichia coli [E. coli] as the cause of diseases classified elsewhere; E03.9 Hypothyroidism, unspecified; F43.10 Post-traumatic stress disorder, unspecified; I11.0 Hypertensive heart disease with heart failure; I48.0 Paroxysmal atrial fibrillation; F10.20 Alcohol dependence, uncomplicated; R29.6 Repeated falls; S50.312A Abrasion of left elbow, initial encounter; S40.211A Abrasion of right shoulder, initial encounter; W18.39XA Other fall on same level, initial encounter; Z79.82 Long term (current) use of aspirin; Z91.14 Patient's other noncompliance with medication regimen; Z91.81 History of falling; Z95.0 Presence of cardiac pacemaker; Y93.89 Activity, other specified; Y92.89 Other specified places as the place of occurrence of the external cause; Z82.0 Family history of epilepsy and other diseases of the nervous system; Z85.118 Personal history of other malignant neoplasm of bronchus and lung
CPT/HCPCS: 36415; 80053; 80061; 81001; 82140; 82607; 82746; 84439; 84443; 85025; 85610; 86592; 92523-GN

== ENCOUNTER 2018-06-02 18:33 | Emergency (ER) | payer MEDICARE, MEDICAID ==
[~2018-06-02] VITALS: Ht 157.5 cm; Wt 50.0 kg
[~2018-06-02 18:33] MED LIST changes: +ARIP5TAB13 PO; +ASPI81TA45 PO; +NICO-487 TD
[2018-06-02 20:15] LABS: MEAN CORPUSCULAR HEMOGLOBIN 30.5 pg (27.0-34.8); MEAN CORPUSCULAR HGB CONC 32.7 g/dL (32.4-35.8); MEAN CORPUSCULAR VOLUME 93.4 fL (80-100); PLATELET COUNT 453 x10^3/uL (130-400); RED BLOOD COUNT 3.34 x10^6/uL (3.82-5.3)
[2018-06-02 20:19] VITALS: BP 132/59
[2018-06-02 20:25] LABS: ALBUMIN 3.4 g/dL (3.4-5.0); ANION GAP 11 mmol/L (5-15); CALCIUM 8.7 mg/dL (8.5-10.1); CHLORIDE 94 mmol/L (98-107)
[2018-06-02 20:28] LABS: ALANINE AMINOTRANSFERASE 15 U/L (12-78); ALKALINE PHOSPHATASE 135 U/L (45-117); BILIRUBIN,TOTAL 0.6 mg/dL (0.2-1.0); TOTAL PROTEIN 6.9 g/dL (6.4-8.2)
[2018-06-02 20:29] LABS: MICROSCOPIC AUTO
[2018-06-02 20:30] LABS: CULTURE INDICATED? NO
[2018-06-02 20:35] LABS: BASOPHILS # (AUTO) 0.01 x10^3/uL (0-0.1); BASOPHILS % (AUTO) 0 % (0-1); EOSINOPHILS % (AUTO) 0 % (1-7); LYMPHOCYTES # (AUTO) 0.15 x10^3/uL (1-3.4); LYMPHOCYTES % (AUTO) 2 % (22-44); MD SCAN; MONOCYTES # (AUTO) 0.24 x10^3/uL (0.2-0.8); MONOCYTES % (AUTO) 3 % (2-9); NEUTROPHILS # (AUTO) 8.44 x10^3/uL (1.8-6.8); NEUTROPHILS % (AUTO) 96 % (42-75)
== END 2018-06-02 21:46 | disposition home or self-care (01) ==
LOC: ED 20:34
DX: E87.1 Hypo-osmolality and hyponatremia (principal); F31.9 Bipolar disorder, unspecified; F41.1 Generalized anxiety disorder; F43.10 Post-traumatic stress disorder, unspecified
CPT/HCPCS: 36415; 80053; 81001; 85025; 99283

== ENCOUNTER 2018-10-23 00:37 | Emergency (ER) | payer MEDICAID, MEDICARE ==
[~2018-10-23] VITALS: Ht 154.9 cm; Wt 45.0 kg
[~2018-10-23 00:37] MED LIST changes: +LOSA100T14 PO; -LOSA100T7 PO; +LOSA25TA25 PO; -LOSA25TA6 PO; -QUET25TA PO; +QUET25TA7 PO; +SERT50TA28 PO; -SERT50TA5 PO
--- NOTE | 2018-10-23 00:37 | NUR ---
Pt brought in by EMS from an assisted living facility. Per EMS, pt's living situation is deplorable with rotten food, trash, and feces present throughout the living areas. Pt is being evicted from this assisted living facility for this reason as well as the fact that she has been known to steal from other residents and wanders the facility intoxicated, passing out in hallways. Per EMS, pt is without complaint other than a cough. Pt denies any complaint to ED staff. FS 127
[2018-10-23 00:40] VITALS: BP 118/94
== END 2018-10-23 01:27 | disposition home or self-care (01) ==
LOC: ED 01:15
DX: F10.120 Alcohol abuse with intoxication, uncomplicated (principal); Z72.9 Problem related to lifestyle, unspecified; F31.9 Bipolar disorder, unspecified; F41.1 Generalized anxiety disorder; Z95.0 Presence of cardiac pacemaker
CPT/HCPCS: 99283